=== PATIENT | female | born 1975 | race Asian ===

== ENCOUNTER 2016-08-27 19:24 | Emergency (ER) | payer OTHER ==
--- NOTE | 2016-08-27 20:01 | ERNOTE ---
Medical Problem HPI - Narrative Date of Service: 08/27/16 - General Chief Complaint: General Assessment Source: patient Exam Limitations: no limitations - Immun/Allergies/Home Medications Immunizations: IMMUNIZATION HX History of Influenza Vaccine No Hx Pneumococcal Vaccination No Allergies/Adverse Reactions: Allergies No Known Drug Allergies Allergy (Verified 08/27/16 19:41) Home Medications: HOME MEDICATIONS Doxycycline Hyclate [Vibratab] 100 mg PO BID #14 tablet 08/27/16 [Last Taken Unknown] - History of Present History Narrative: Coughing for one month and has been having intermittent production of phlegm. She has been troubled because she has been having difficulty smoking due to throat irritation and persistent coughing. Denies any shortness of breath or chest pain. Nothing seems to worsen nor improve the cough. Timing: constant Severity: moderate Modifying Factors - (Improves): Present: other - nothing Modifying Factors - (Worsens): Present: other - nothing Review of Systems - Review of Systems Constitutional: Present: no symptoms reported EYE: Present: no symptoms reported ENT: Present: no symptoms reported Respiratory: Present: See HPI Cardiology: Present: no symptoms reported Gastrointestinal/Abdominal: Present: no symptoms reported Genitourinary: Present: no symptoms reported Musculoskeletal: Present: no symptoms reported Skin: Present: no symptoms reported Neurological: Present: no symptoms reported Endocrine: Present: no symptoms reported Hematologic/Lymphatic: Present: no symptoms reported Psych: Present: no symptoms reported - Patient's Past Medical History Patient History - Medical: Hypothyroidism Patient History - Cardiac/Respiratory: Hypertension Patient History - Cancer: No Hx of Cancer Patient History - Surgical Procedures: Cholecystectomy, Patient History - Other: None LMP (females 10-50): last week - Social History Living Situations: home Psych History: Hx of Bipolar Disorder Smoking Status: Current every day smoker Alcohol Use: none Drug Use: none - Immunizations Hx Pneumococcal Vaccination: No History of Influenza Vaccine: No Physical Exam - Physical Exam General Appearance: Present: no apparent distress Eye Exam: Normal inspection: bilateral Ears, Nose, Throat: Present: normal ENT inspection Neck: Present: normal inspection Respiratory: Present: decreased breath sounds. 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 - Vital Signs Patient's Vital Signs:: I have reviewed the patient's vital signs. Vital Signs: Vital Signs 08/27/16 19:28 Temperature 38.6 C H Pulse Rate 121 H Respiratory 18 Rate Blood Pressure 164/92 - X-Ray X-Ray #1 X-Ray: chest Interpretation: Interp. by me X-ray Comments: NAD - CT/Ultrasound CT/Ultrasound Narrative: Patchy consolidations throughout both lungs. - Progress/Reassessment Chief Complaint: General Assessment Progress Note-Subjective: 08/28/16 00:40 Feeling better after nebulizer, IV fluids. Antibiotics administered. Hemodynaically stable. 08/28/16 00:46 Given the stable clinical appearance it was felt that the patient could be managed as an out patient with close follow up. In the ED she was given 2 grams of Rocephin and Doxycycline. She has been advised to return if she should feel worse. 08/28/16 00:48 Departure - Departure Clinical Impression: Pneumonia Disposition: Home self-care Condition: Fair Instructions: Community-Acquired Pneumonia, Adult, [id number] Print Language: Bulgarian Additional Instructions: If you feel worse return to the ED. Drink two liters of water each day that you are ill. Follow up with your doctor in 2 days. Prescriptions: Doxycycline Hyclate [Vibratab] 100 mg PO BID #14 tablet
[2016-08-27 20:46] LABS: Hematocrit 41.4 % (37.0-47.0); Mean Cell Volume 89.8 fl (78-100); Mean Corpuscular Hemoglobin 30.4 pg (27-31); Mean Corpuscular Hgb Conc 33.8 g/dl (32-36); Mean Platelet Volume 9.6 fl (6.0-9.5); Platelet Count 296 K/mm3 (150-450); Red Blood Count 4.61 M/mm3 (4.2-5.4); Red Cell Distribution Width 12.3 % (11.5-14.0); White Blood Count 24.5 K/mm3 (4.0-10.5)
[2016-08-27 20:49] LABS: Total Cells Counted 100
[2016-08-27 20:55] LABS: Anion Gap 11.7 mmol/L (6.8-13.8); BUN/Creatinine Ratio 25.3 (9.0-21.6); Estimated Creat Clear 85.9; Potassium 3.7 mmol/L (3.4-4.6)
[2016-08-27 21:56] LABS: Lymphocyte 15 % (20-51); Monocyte 9 % (0-9); Neutrophil 76 % (42-75); Neutrophil # 18.6 K/mm3 (1.3-6.0)
[2016-08-27 21:57] LABS: Hypochromia 1+; Platelet Estimate Normal (NORMAL)
[2016-08-27 22:17] LABS: Urine Bilirubin Negative (NEGATIVE); Urine Ketone Negative (NEGATIVE); Urine Nitrite Negative (NEGATIVE); Urine Protein 15 mg/dL (NEGATIVE); Urine Specific Gravity >=1.030 SP.GR. (1.005-1.010); Urine Urobilinogen Normal (NORMAL)
[2016-08-27 22:47] LABS: Urine Amorphous Sediment Many - 3+ (NONE-FEW); Urine Appearance Turbid; Urine Bacteria 3+; Urine Blood 10 /ul (NEGATIVE); Urine Color Yellow; Urine RBC 0-5 /hpf (0-5); Urine WBC 0-5 /hpf (0-5)
[2016-08-27] MEDS ORDERED: DEXAMETHASONE SOD PHOSPHATE 10 MG/ML VIAL IV ONE (23:18)
[2016-08-27] MEDS ORDERED: DOXYCYCLINE HYCLATE 100 MG TABLET PO ONE (23:18)
[2016-08-27] MEDS ORDERED: NORMAL SALINE 1,000 ML IV ONE (23:19)
[2016-08-27] MEDS ORDERED: DEXAMETHASONE SOD PHOSPHATE 10 MG/ML VIAL ONE (23:24)
[2016-08-27] MEDS ORDERED: DOXYCYCLINE HYCLATE 100 MG TABLET ONE (23:24)
[2016-08-27] MEDS ORDERED: ALBUTEROL SULFATE/IPRATROPIUM 3 ML NEBU IH ONE ×2 (23:28→23:42)
[2016-08-27] MEDS ORDERED: ALBUTEROL SULFATE 2.5 MG/0.5 ML VIAL.NEB IH ONE ×2 (23:28→23:42)
[2016-08-27] MEDS ORDERED: ACETAMINOPHEN 500 MG TABLET PO ONE (23:44)
[2016-08-28 01:18] VITALS: BP 114/49
== END 2016-08-28 00:45 | disposition home or self-care (01) ==
LOC: ER 19:24
DX: J18.9 Pneumonia, unspecified organism (principal); F17.210 Nicotine dependence, cigarettes, uncomplicated